=== PATIENT | female | born 1995 | race African-American/Black ===

== ENCOUNTER 2017-07-24 02:29 | Emergency (ER) | payer OTHER ==
[~2017-07-24] VITALS: Ht 160 cm; Wt 70.3 kg
[2017-07-24 02:50] LABS: HEMATOCRIT 44.1 % (37.0-47.0); HEMOGLOBIN 13.8 gm/dL (12.0-15.0); MCH 22.5 pg (26.0-34.0); MCHC 31.2 g/dL (28.0-37.0); MCV 72.2 fL (80.0-100.0); RBC 6.11 mil/uL (4.20-5.00); RDW 14.6 % (10.5-14.5); WBC 7.3 thou/uL (4.0-11.0)
[2017-07-24 02:51] LABS: CALCIUM 8.4 mg/dL (8.5-10.1); CREATININE 0.9 mg/dL (0.6-1.0)
[2017-07-24 02:57] LABS: ALBUMIN 3.6 g/dL (3.4-5.0); TOTAL BILIRUBIN 0.5 mg/dL (<0.1-1.0); TOTAL PROTEIN 6.7 g/dL (6.4-8.2)
[2017-07-24 03:04] LABS: URINE BLOOD 3+ (Negative); URINE COLOR RED; URINE GLUCOSE-RANDOM* NEGATIVE (Negative); URINE KETONES NEGATIVE (Negative); URINE LEUKOCYTES-REFLEX NEGATIVE (Negative); URINE PROTEIN (DIPSTICK) 1+ (Negative); URINE SPECIFIC GRAVITY 1.025 (1.005-1.035); URINE UROBILINOGEN 0.2 E.U./dl (0.2-1.0)
[2017-07-24 03:13] LABS: CASTS None Seen /LPF (None Seen); ICTOTEST (BILI CONFIRMATORY) Negative (Negative); SQUAMOUS >10 Many /LPF (0-3); URINE BILIRUBIN NEGATIVE (Negative)
[2017-07-24 03:14] LABS: CRYSTALS None Seen /LPF (None Seen); URINE RBC >20 Many /HPF (0-2); URINE WBC-REFLEX 0-5 Rare /HPF (0-5)
[2017-07-24 04:01] VITALS: BP 114/56
== END 2017-07-24 04:09 | disposition home or self-care (01) ==
LOC: ER 02:29
PROVIDERS: Emergency Medicine
DX: R10.30 Lower abdominal pain, unspecified (principal)

== ENCOUNTER 2017-08-02 18:18 | Emergency (ER) | payer BC ==
[~2017-08-02] VITALS: Ht 160 cm; Wt 75.3 kg
--- NOTE | ~2017-08-02 | EKG ---
[address] [place] [address] ELECTROCARDIOGRAM REPORT Name: VALENTE ORTIZ Room #: DEP Franklyn#: [id number] Admission: 08/02/17 Attend Phys: Discharge: 08/02/17 Date of : [birth year] Report #: [id number] THIS REPORT FOR: //name// [facility] ED Test Date: 2017-08-02 Test Time: 18:30:33 Pat Name: VALENTE ORTIZ Department: Room: Gender: F [employer]: DIPAK : 1995 Requested By: Alejandro Mayen Order Number: [id number] MD: Lui Plata Measurements Intervals [place] Rate: 56 P: 39 WV: 158 QRS: 75 QRSD: 96 T: 19 QT: 420 QTc: 406 Interpretive Statements Sinus bradycardia Otherwise normal tracing No previous ECG available for comparison Electronically Signed On 08-03-2017 14:27:08 TECHNOLOGY COACH by Lui Plata [email or web address] <ELECTRONICALLY SIGNED> By: Lui Plata MD, [facility] 08/03/17 1427 1830 1830 Lui Plata MD, FACC /EPI
[2017-08-02] MEDS ORDERED: NAPROSYN500 MG PO (19:17)
[2018-03-15] MEDS ORDERED: IBUPROFEN 400400 M2 PO (04:53)
== END 2017-08-02 19:43 | disposition home or self-care (01) ==
LOC: ER 18:18
DX: R07.89 Other chest pain (principal); M43.6 Torticollis

== ENCOUNTER 2017-08-26 14:57 | Emergency (ER) | payer BC ==
[~2017-08-26] VITALS: Ht 160 cm; Wt 73.5 kg
[~2017-08-26 14:57] MED LIST: NAPROSYN500 MG PO
[2017-08-26 15:09] LABS: URINE BILIRUBIN NEGATIVE (Negative); URINE BLOOD 3+ (Negative); URINE CLARITY CLEAR; URINE COLOR YELLOW; URINE GLUCOSE-RANDOM* NEGATIVE (Negative); URINE KETONES 1+ (Negative); URINE LEUKOCYTES NEGATIVE (Negative); URINE NITRITE NEGATIVE (Negative); URINE PROTEIN (DIPSTICK) TRACE (Negative); URINE SPECIFIC GRAVITY 1.025 (1.005-1.035); URINE UROBILINOGEN 0.2 E.U./dl (0.2-1.0)
[2017-08-26 15:16] LABS: CASTS None Seen /LPF (None Seen); CRYSTALS None Seen /LPF (None Seen); SQUAMOUS 4-10 Moderate /LPF (0-3); URINE RBC >20 Many /HPF (0-2); URINE WBC 0-5 Rare /HPF (0-5)
[2017-08-26 15:17] LABS: BACTERIA None Seen /HPF (None Seen)
[2017-08-26 15:35] LABS: HEMATOCRIT 35.6 % (37.0-47.0); HEMOGLOBIN 11.3 gm/dL (12.0-15.0); MCH 22.9 pg (26.0-34.0); MCHC 31.8 g/dL (28.0-37.0); MCV 72.1 fL (80.0-100.0); RBC 4.94 mil/uL (4.20-5.00); RDW 14.9 % (10.5-14.5)
[2017-08-26 15:45] LABS: CALCIUM 8.5 mg/dL (8.5-10.1); CREATININE 0.8 mg/dL (0.6-1.0); POTASSIUM 3.7 mmol/L (3.5-5.1)
[2017-08-26 15:51] LABS: ALBUMIN 3.6 g/dL (3.4-5.0); TOTAL BILIRUBIN 0.4 mg/dL (<0.1-1.0); TOTAL PROTEIN 6.9 g/dL (6.4-8.2)
[2017-08-26] MEDS ORDERED: ONDANSETRON HCL4 M2 PO (15:58)
[2017-08-26] MEDS ORDERED: MOBIC7.5 MG PO (15:58)
[2017-08-26] MEDS ORDERED: IRON325 PO (15:58)
[2018-03-15] MEDS ORDERED: IBUPROFEN 400400 M2 PO (04:53)
== END 2017-08-26 16:39 | disposition home or self-care (01) ==
LOC: ER 14:57
PROVIDERS: Physician Assistant
DX: N94.6 Dysmenorrhea, unspecified (principal); R19.7 Diarrhea, unspecified

== ENCOUNTER 2017-12-20 20:58 | Emergency (ER) | payer BC ==
[~2017-12-20] VITALS: Ht 160 cm; Wt 74.4 kg
[~2017-12-20 20:58] MED LIST changes: +IRON325 PO; +MOBIC7.5 MG PO; +ONDANSETRON HCL4 M2 PO
[2017-12-20] MEDS ORDERED: MOBIC15 MG PO (22:55)
[2017-12-20 23:21] VITALS: BP 108/66
== END 2017-12-20 23:27 | disposition home or self-care (01) ==
LOC: ER 20:58
DX: S00.83XA Contusion of other part of head, initial encounter (principal); S60.212A Contusion of left wrist, initial encounter; V89.2XXA Person injured in unspecified motor-vehicle accident, traffic, initial encounter; Y93.89 Activity, other specified; Y92.89 Other specified places as the place of occurrence of the external cause; Y99.8 Other external cause status

== ENCOUNTER 2018-02-03 20:55 | Emergency (ER) | payer BC ==
[~2018-02-03] VITALS: Ht 160 cm; Wt 73.5 kg
[~2018-02-03 20:55] MED LIST changes: +MOBIC15 MG PO
[2018-02-03 23:12] VITALS: BP 119/74
== END 2018-02-03 23:12 | disposition home or self-care (01) ==
LOC: ER 20:55
DX: S61.411A Laceration without foreign body of right hand, initial encounter (principal); W25.XXXA Contact with sharp glass, initial encounter; Y93.G1 Activity, food preparation and clean up; Y92.89 Other specified places as the place of occurrence of the external cause; Y99.8 Other external cause status

== ENCOUNTER 2018-02-18 21:23 | Emergency (ER) | payer BC ==
[~2018-02-18] VITALS: Ht 162.6 cm; Wt 73.9 kg
[2018-02-18 21:56] VITALS: BP 110/56
== END 2018-02-18 21:56 | disposition home or self-care (01) ==
LOC: ER 21:23
DX: S61.411D Laceration without foreign body of right hand, subsequent encounter (principal); Z48.02 Encounter for removal of sutures; F17.210 Nicotine dependence, cigarettes, uncomplicated

== ENCOUNTER 2019-08-28 06:07 | Emergency (ER) | payer BC ==
[~2019-08-28] VITALS: Ht 160 cm; Wt 86.2 kg
[~2019-08-28 06:07] MED LIST changes: +IBUPROFEN 400400 M2 PO
[2019-08-28 06:42] LABS: URINE BILIRUBIN NEGATIVE (Negative); URINE BLOOD NEGATIVE (Negative); URINE CLARITY CLEAR; URINE COLOR YELLOW; URINE GLUCOSE-RANDOM* NEGATIVE (Negative); URINE KETONES NEGATIVE (Negative); URINE LEUKOCYTES-REFLEX NEGATIVE (Negative); URINE NITRITE-REFLEX NEGATIVE (Negative); URINE PROTEIN (DIPSTICK) NEGATIVE (Negative); URINE SPECIFIC GRAVITY >= 1.030 (1.005-1.035); URINE UROBILINOGEN 0.2 E.U./dl (0.2-1.0)
[2019-08-28 06:49] LABS: HEMATOCRIT 40.8 % (37.0-47.0); HEMOGLOBIN 12.3 gm/dL (12.0-15.0); MCH 22.2 pg (26.0-34.0); MCHC 30.3 g/dL (28.0-37.0); MCV 73.2 fL (80.0-100.0); PLATELET COUNT 166 thou/uL (150-400); RBC 5.57 mil/uL (4.20-5.00); RDW 13.9 % (10.5-14.5); WBC 6.9 thou/uL (4.0-11.0)
[2019-08-28 06:51] LABS: CREATININE 0.9 mg/dL (0.6-1.0); POTASSIUM 3.7 mmol/L (3.5-5.1)
[2019-08-28 06:57] LABS: TOTAL BILIRUBIN 0.3 mg/dL (<0.1-1.0); TOTAL PROTEIN 7.8 g/dL (6.4-8.2)
[2019-08-28 07:27] VITALS: BP 119/65
[2019-08-28 07:55] LABS: ABSOLUTE NEUTROPHILS 2.5 thou/uL (1.4-8.2)
[2019-08-28 07:56] LABS: ANISOCYTOSIS SLIGHT; MICROCYTES 1+; OVALOCYTES FEW
== END 2019-08-28 07:54 | disposition home or self-care (01) ==
LOC: ER 06:07
PROVIDERS: Emergency Medicine
DX: R10.84 Generalized abdominal pain (principal); R11.2 Nausea with vomiting, unspecified; F17.210 Nicotine dependence, cigarettes, uncomplicated

== ENCOUNTER 2021-07-14 19:12 | Emergency (ER) | payer OTHER ==
[~2021-07-14] VITALS: Ht 160 cm; Wt 71.7 kg
[2021-07-14 21:35] VITALS: BP 115/84
== END 2021-07-14 21:51 | disposition home or self-care (01) ==
LOC: ER 19:12
DX: R51.9 Headache, unspecified (principal); F17.210 Nicotine dependence, cigarettes, uncomplicated; Z79.899 Other long term (current) drug therapy